=== PATIENT | female | born 1980 | race Caucasian/White ===

== ENCOUNTER 2024-03-05 06:21 | Outpatient (CLI) | payer OTHER ==
[2024-03-05 07:51] LABS: HEMATOCRIT 36.9 % (36.0-45.00); HEMOGLOBIN 12.8 g/dL (12.0-15.00); MEAN CELL VOLUME 91.7 fL (80.00-100.00); MEAN CORPUSCULAR HEMOGLOBIN 31.8 pg (27.00-32.0); MEAN CORPUSCULAR HGB CONC 34.7 g/dl (32.0-36.0); PLATELET COUNT 177 K/uL (150-450); RED BLOOD COUNT 4.02 M/uL (4.00-6.00); RED CELL DISTRIBUTION WIDTH 14.6 % (11.5-14.5)
[2024-03-05 08:38] LABS: % SATURACION 27.5 % (15-50); ALBUMIN 3.9 gm/dL (3.4-5.0); BILIRUBIN TOTAL 0.55 mg/dL (0.3-1.2); CALCIUM 8.7 mg/dL (8.5-10.1); CREATININE SERUM 0.55 mg/dL (0.55-1.02); FERRITIN 13.5 NG/ML (8-252); GFR 120.07; GLOBULINA 3.8 G/DL (2.4-3.5); POTASSIUM 3.71 mEq/L (3.5-5.1); T4 FREE 1.04 NG/ML (0.76-1.46); TOTAL PROTEIN 7.7 gm/dL (6.4-8.2); TSH 1.99 uIU/mL (0.358-3.74)
[2024-03-05 09:06] LABS: MANUAL PLATELET COUNT 290; PLATELET ESTIMATE NORMAL (NORMAL)
[2024-03-05 13:10] LABS: FOLIC ACID > 20.00 ng/ml (4.78-20)
[2024-03-06 13:05] LABS: hgb a 97.6 % (96.4-98.8); hgb a2 2.4 % (1.8-3.2); hgb f 0 % (0.0-2.0); hgb s 0 % (0.0)
[2024-03-07 19:08] LABS: g6pd quant 250 (127-427)
[2024-03-08 15:09] LABS: INTRINSIC FACTOR BLOCKING AB 1.1 AU/mL (0.0-1.1); PARIETAL CELL ANTIBODIES 1.7 Units (0.0-20.0)
== END 2024-03-05 06:22 | disposition home or self-care (01) ==
LOC: LAB 06:21
PROVIDERS: ATTEND Internal Medicine Hematology & Oncology
DX: D50.8 Other iron deficiency anemias (principal); K29.70 Gastritis, unspecified, without bleeding; R79.9 Abnormal finding of blood chemistry, unspecified; I10 Essential (primary) hypertension; R74.02 Elevation of levels of lactic acid dehydrogenase [LDH]; K76.89 Other specified diseases of liver; D63.8 Anemia in other chronic diseases classified elsewhere; D51.0 Vitamin B12 deficiency anemia due to intrinsic factor deficiency; D51.1 Vitamin B12 deficiency anemia due to selective vitamin B12 malabsorption with proteinuria; E03.8 Other specified hypothyroidism; E06.3 Autoimmune thyroiditis